=== PATIENT | male | born 1950 | race Caucasian/White ===

== ENCOUNTER → 2020-10-08 15:06 | Outpatient (BNVA) | payer MEDICARE, SELFPAY | PROVIDERS: Visit Provider Internal Medicine | DX: R97.20 Elevated prostate specific antigen [PSA] (principal); R19.5 Other fecal abnormalities; R30.0 Dysuria; N39.0 Urinary tract infection, site not specified | CPT/HCPCS: 80053; 80061; 81003; 84443; G0103 ==

== ENCOUNTER → 2020-10-23 10:08 | Outpatient (BNVA) | payer MEDICARE, SELFPAY | PROVIDERS: Visit Provider Internal Medicine | DX: Z01.812 Encounter for preprocedural laboratory examination (principal); Z20.822 Contact with and (suspected) exposure to COVID-19 | CPT/HCPCS: 87635 ==

== ENCOUNTER 2020-10-30 08:35 | Day surgery (SDC) | payer MEDICARE, SELFPAY ==
[2020-10-28 13:21] VITALS: BMI 26.5
--- NOTE | 2020-10-30 08:37 | ANES.PREANE2 ---
Pre-Anesthetic Assessment Pre-Anesthetic Assessment: Height/Weight: Height 1.78 m Weight 83.915 kg Proposed Procedure: Operation Date: 10/30/20 10:15 Proposed Procedures p EGD/colon [id number] R19.5(Not Applicable) - Carter Sánchez MD s Colonoscopy(Not Applicable) - Carter Sánchez MD Was Beta Makayla taken within 24 hours: N/A Was Clonidine taken within 24 hours: N/A Social: Social History: No alcohol and No tobacco Exam: Pre-Anes Outpt Exam: alert, oriented x 3, clear to auscultation bilaterally and regular rate & rhythm Airway: Submandibular: WNL Cervical ROM: WNL MP: 2 Pulmonary: Pulmonary: None reported CV/HEM: CV/HEM: None reported : Comments: Prostatic Hypertrophy Hepatic: Hepatic: None reported GI: Comments: Heme positive stool Metabolic: Metabolic: None reported Musc/skel: Musc/skel: None reported Neuropsych: Neuropsych: None reported Anesthetic Plan: ASA status: 2 PFSH Anesthesia PFSH: Social History (Updated 10/08/20 @ 10:24 by ALEXANDRO Patel) Smoking and tobacco status: never smoked Alcohol intake: current Alcohol intake frequency: few times a week Adopted: No Marital status: Number of children: 1 service: Yes History of recent travel: No Current gender identity: Male Data Anesthesia Cardiac Studies: No Data to Display
--- NOTE | 2020-10-30 09:26 | W.PM.OPSFHP ---
Same Day Surgery H&P Indication for Procedure/HPI DATE OF PROCEDURE: October 30, 2020 CHIEF COMPLAINT/INDICATIONFOR SURGICAL PROCEDURE: Heme positive stool PREOP DIAGNOSIS: positive FOBT PLANNED PROCEDRUE: Operation Date: 10/30/20 10:15 Proposed Procedures p EGD/colon [id number] R19.5(Not Applicable) - Carter Sánchez MD s Colonoscopy(Not Applicable) - Carter Sánchez MD Medications/Allergies* Home Medications Medication Instructions Recorded Confirmed Type cholecalciferol (vitamin D3) 25 25 mcg PO DAILY 10/08/20 10/08/20 History mcg (1,000 unit) capsule multivitamin 1 tab PO DAILY 10/08/20 10/08/20 History Allergies/Adverse Reactions Allergy/AdvReac Type Severity Reaction Status Date / Time No Known Allergies Allergy Verified 10/08/20 10:17 Pertinent History/Comorbid Conditions* Social History Smoking and tobacco status: never smoked Alcohol intake: current Alcohol intake frequency: few times a week Adopted: No Marital status: Number of children: 1 service: Yes History of recent travel: No Current gender identity: Male Pertinent Exam Findings alert, oriented x 3, clear to auscultation bilaterally, regular rate & rhythm, operative site marked and procedure specific exam findings Recommendations Surgery/Procedure today Coding Level of Care Code Acute [employer] Tester for Michelle Pelletier
[2020-10-30 09:35] VITALS: BP 117/88; PULSE 66; RESP 16; TEMP 36.6; O2SAT 96
[2020-10-30] MEDS: sodium chloride 0.9% 1,000 ML 30 ML IV (09:56)
[2020-10-30 10:26] VITALS: BP 102/72; PULSE 68; RESP 16; TEMP 36.2; O2SAT 94
[2020-10-30 10:36] VITALS: BP 102/82; PULSE 66; RESP 18; O2SAT 100
--- NOTE | 2020-10-30 11:13 | ANE.PACU2 ---
Inpatient post-anesthesia follow up: Airway intact: Yes Vital signs: Temperature 97.1 F Pulse Rate 66 Respiratory Rate 18 Blood Pressure 102/82 Pulse Oximetry 100 Oxygen Delivery Me thod Room Air Oxygen Flow Rate 2 Fraction of Inspir ed Oxygen Hydration adequate: Yes Nausea and vomiting: No Pain level: 1 Mental status: Baseline
[2020-11-01 07:15] LABS: H. Pylori / CLO Test Negative
== END 2020-10-30 11:11 | disposition home or self-care (01) ==
PROVIDERS: PCP Internal Medicine; Visit Provider Internal Medicine
PROC: 0DJ08ZZ Inspection of Upper Intestinal Tract, Via Natural or Artificial Opening Endoscopic (ICD-10-PCS; CPT 43235; principal; 2020-10-30 10:15)
PROC: 0DJD8ZZ Inspection of Lower Intestinal Tract, Via Natural or Artificial Opening Endoscopic (ICD-10-PCS; CPT 45378; 2020-10-30 10:15)
DX: R19.5 Other fecal abnormalities (principal); K29.70 Gastritis, unspecified, without bleeding; D12.4 Benign neoplasm of descending colon
CPT/HCPCS: 43239; 45385; 87077; 88305; 96360; J2704; J7030

== ENCOUNTER → 2021-05-06 14:22 | Outpatient (BNVA) | payer MEDICARE, SELFPAY | PROVIDERS: PCP Internal Medicine; Visit Provider Internal Medicine | DX: R79.89 Other specified abnormal findings of blood chemistry (principal) | CPT/HCPCS: 84443 ==

== ENCOUNTER 2022-05-17 13:33 | Outpatient (CLI) | payer MEDICARE, SELFPAY ==
[2022-05-17 14:22] LABS: Free T4 Free Thyroxine 0.91 ng/dL (0.82-1.77); Thyroid Stimulating Hormone 6.43 uIU/mL (0.27-4.20)
== END 2022-05-17 13:34 | disposition home or self-care (01) ==
LOC: LAB 13:36
PROVIDERS: PCP Internal Medicine; Visit Provider Chiropractor
DX: E03.9 Hypothyroidism, unspecified (principal)
CPT/HCPCS: 36415; 84439; 84443; 84481